=== PATIENT | male | born 1995 | race Caucasian/White ===

== ENCOUNTER 2018-08-22 13:07 | Emergency (ER) | payer SELFPAY ==
[~2018-08-22] VITALS: Ht 170.2 cm; Wt 117.9 kg
[~2018-08-22 13:07] MED LIST: CEPH-37 PO; METH4PAK PO; [UNRECOGNIZED DRUG - OTHER] EX
[2018-08-22 13:24] VITALS: BP 146/84
== END 2018-08-22 14:05 | disposition home or self-care (01) ==
LOC: ER 13:07
DX: J03.90 Acute tonsillitis, unspecified (principal)